=== PATIENT | female | born 1930 | race American Indian/Alaskan Native ===

== ENCOUNTER 2018-11-29 07:51 | Day surgery (SDC) | payer MEDICARE ==
[2018-11-29 08:44] VITALS: BMI 21.6
[2018-11-29 10:05] LABS: HEMOGLOBIN 14.3 g/dL (11.0-16.0); MEAN CELL VOLUME 94.7 fL (81.0-99.0); MEAN CORPUSCULAR HEMOGLOBIN 32.2 pg (27.0-31.0); MEAN PLATELET VOLUME 9.9 fL (7.2-11.7); RBC 4.45 Mil/uL (3.80-5.20); RED CELL DISTRIBUTION WIDTH 14.3 % (11.5-14.5); WHITE BLOOD COUNT 7.4 K/uL (4.8-10.8)
[2018-11-29] MEDS ORDERED: Midazolam 2 MG/2 ML VIAL ONE (10:29)
--- NOTE | 2018-11-29 11:39 | CP.SDSHP ---
Same Day Surgery H & P - History Proposed Procedure: CT guided left lung mass biopsy Pre-Op Diagnosis: LUng cancer - Allergies Allergies: Allergies No Known Allergies Allergy (Unverified 08/24/13 10:50) - Physical Exam Mental Status: Alert & Oriented x3 - Impression Impression: Pt with PET positive mass near descending thoracic aorta. CT performed today showed improved aearation of posterior basal segment left lung. Pleural thickening concerning for malignancy is not amenable to perc. needle biopsy given it's proximity to aorta and segmental pulm. arterial branches. Findings discussed with referring MD Pt. Evaluated Today:Candidate for Anesthesia & Procedure: Yes (ASA 3 MALAMPATI 3) Short Stay Discharge - Short Stay Discharge Admitting Diagnosis/Reason for Visit: DX: LUNG MASS Disposition: HOME/ ROUTINE
--- NOTE | 2018-11-29 11:54 | CT ---
PROCEDURE: Date of procedure: 11/29/2018 Procedure: CT of the chest for lung biopsy Radiation: 116.10 MGy-cm HISTORY: Left lower lobe lung mass TECHNIQUE: Following procedure time-out, patient placed prone on the CT table. Noncontrast CT scan was performed which showed pleural thickening in the left lower lobe adjacent to the aorta. Previously consolidated left lower lung (posterior basal segment) improved aeration. Residual pleural thickening is inseparable from the aorta and not amenable to percutaneous biopsy. A small area of consolidation is also seen in the medial segment of the left lower lobe. This is inseparable from the segmental pulmonary artery. Findings were discussed with a hospice rn and biopsy was not performed. IMPRESSION: Left lower lobe pleural thickening is too close to the abdominal aorta for safe needle biopsy.
== END 2018-11-29 13:30 | disposition home or self-care (01) ==
LOC: C.SPRAD 07:51
PROVIDERS: ATTEND Radiology Vascular & Interventional Radiology
DX: Z53.8 Procedure and treatment not carried out for other reasons (principal)
CPT/HCPCS: 36415; 71250; 85027; 85730; J2250; J3010